=== PATIENT | male | born 1935 | race Caucasian/White ===

== ENCOUNTER 2016-09-21 19:03 | Inpatient (IN) | payer MEDICARE ==
--- NOTE | 2016-09-21 19:49 | ED ---
General Adult HPI - General Chief complaint: Chest Pain Stated complaint: Chest pain Time Seen by Provider: 09/21/16 19:05 Source: patient, RN notes reviewed Mode of arrival: wheelchair Limitations: no limitations - History of Present Illness Initial comments: Is a 81-year-old male who presents emergency Department with a past medical history significant for lung cancer. Patient states 2007 he had a lobectomy on the left side and one year ago he had CyberKnife on lesions on the right. Patient comes in today because he been having intermittent chest pain for 6 months and normally goes away in a few hours but today it's been ongoing since 2 :00 in the afternoon and he continues per patient states he is also much more short of breath and he normally is. Patient denies any fever chills or cough per patient denies any palpitations. Patient denies any headache patient denies lightheadedness dizziness or near syncopal episode. Patient denies any abdominal pain patient denies nausea vomiting or diarrhea. Patient denies any recent injury or trauma. - Related Data Home Medications Medication Instructions Recorded Confirmed Atenolol [Tenormin] 50 mg PO HS 09/21/16 09/21/16 Levothyroxine Sodium [Synthroid] 25 mcg PO DAILY 09/21/16 09/21/16 Naproxen Sodium [Aleve] 220 mg PO BID PRN 09/21/16 09/21/16 Omeprazole 20 mg PO DAILY 09/21/16 09/21/16 Pravastatin Sodium [Pravachol] 40 mg PO HS 09/21/16 09/21/16 Terazosin HCl [Hytrin] 10 mg PO HS 09/21/16 09/21/16 Ubidecarenone [Co Q-10] 100 mg PO HS 09/21/16 09/21/16 Allergies Allergy/AdvReac Type Severity Reaction Status Date / Time hydromorphone [From Dilaudid] AdvReac Hallucinati Verified 09/21/16 19:24 ons Review of Systems ROS Statement: Those systems with pertinent positive or pertinent negative responses have been documented in the HPI. ROS Other: All systems not noted in ROS Statement are negative. Past Medical History Past Medical History: Cancer, CVA/TIA, Hyperlipidemia, Hypertension Additional Past Medical History / Comment(s): lung History of Any Multi-Drug Resistant Organisms: None Reported Past Surgical History: Cholecystectomy Additional Past Surgical History / Comment(s): lung removal, carotid endarectomy Past Psychological History: No Psychological Hx Reported Smoking Status: Former smoker Past Alcohol Use History: None Reported Past Drug Use History: None Reported General Exam - General Exam Comments Initial Comments: GENERAL: Patient is well-developed and well-nourished. Patient is nontoxic and well- hydrated and is in mild distress. ENT: Neck is soft and supple. No significant lymphadenopathy is noted. Oropharynx is clear. Moist mucous membranes. Neck has full range of motion without eliciting any pain. EYES: The sclera were anicteric and conjunctiva were pink and moist. Extraocular movements were intact and pupils were equal round and reactive to light. Eyelids were unremarkable. PULMONARY: Diminished breath sounds on the left CARDIOVASCULAR: There is a regular rate and rhythm without any murmurs gallops or rubs. ABDOMEN: Soft and nontender with normal bowel sounds. No palpable organomegaly was noted. There is no palpable pulsatile mass. SKIN: Skin is clear with no lesions or rashes and otherwise unremarkable. NEUROLOGIC: Patient is alert and oriented x3. Cranial nerves II through XII are grossly intact. Motor and sensory are also intact. Normal speech, volume and content. Symmetrical smile. MUSCULOSKELETAL: Normal extremities with adequate strength and full range of motion. No lower extremity swelling or edema. No calf tenderness. LYMPHATICS: No significant lymphadenopathy is noted PSYCHIATRIC: Normal psychiatric evaluation. Limitations: no limitations Course Vital Signs 09/21/16 09/21/16 09/21/16 19:04 19:49 20:49 Temperature 98.2 F Pulse Rate 99 86 84 Respiratory 20 26 H 24 Rate Blood Pressure 161/67 142/58 138/70 O2 Sat by Pulse 88 L 95 93 L Oximetry Medical Decision Making - Medical Decision Making EKG shows a normal sinus rhythm at 93 bpm RI interval is 162 QRS is 94 QT interval 354 QTC is 440. Patient's EKG is compared to an old EKG no abnormalities are noted Chest x-ray shows a groundglass appearance throughout. Chest CT shows a PE on the right. - Lab Data Result diagrams: 09/21/16 19:31 09/21/16 19:31 Lab Results 09/21/16 09/21/16 09/21/16 Range/Units 19:30 19:31 19:31 WBC 5.9 (3.8-10.6) k/uL RBC 3.37 L (4.30-5.90) m/uL Hgb 9.7 L (13.0-17.5) gm/dL Hct 31.2 L (39.0-53.0) % MCV 92.5 (80.0-100.0) fL MCH 28.9 (25.0-35.0) pg MCHC 31.3 (31.0-37.0) g/dL RDW 13.9 (11.5-15.5) % Plt Count 169 (150-450) k/uL Neutrophils % 81 % Lymphocytes % 7 % Monocytes % 7 % Eosinophils % 2 % Basophils % 0 % Neutrophils # 4.8 (1.3-7.7) k/uL Lymphocytes # 0.4 L (1.0-4.8) k/uL Monocytes # 0.4 (0-1.0) k/uL Eosinophils # 0.1 (0-0.7) k/uL Basophils # 0.0 (0-0.2) k/uL Hypochromasia Moderate Poikilocytosis Slight PT (9.0-12.0) sec INR (<1.1) APTT (22.0-30.0) sec D-Dimer 8.71 H (<0.60) mg/L FEU Sodium (137-145) mmol/L Potassium (3.5-5.1) mmol/L Chloride (98-107) mmol/L Carbon Dioxide (22-30) mmol/L Anion Gap mmol/L BUN (9-20) mg/dL Creatinine (0.66-1.25) mg/dL Est GFR (MDRD) Af Amer (>60 ml/min/1.73 sqM) Est GFR (MDRD) Non-Af (>60 ml/min/1.73 sqM) Glucose (74-99) mg/dL Calcium (8.4-10.2) mg/dL Total Bilirubin (0.2-1.3) mg/dL AST (17-59) U/L ALT (21-72) U/L Alkaline Phosphatase (38-126) U/L Total Creatine Kinase 75 (55-170) U/L CK-MB (CK-2) 0.9 (0.0-2.4) ng/mL CK-MB (CK-2) Rel Index 1.2 Troponin I <0.012 (0.000-0.034) ng/mL NT-Pro-B Natriuret Pep pg/mL Total Protein (6.3-8.2) g/dL Albumin (3.5-5.0) g/dL 09/21/16 09/21/16 09/21/16 Range/Units 19:31 19:31 19:31 WBC (3.8-10.6) k/uL RBC (4.30-5.90) m/uL Hgb (13.0-17.5) gm/dL Hct (39.0-53.0) % MCV (80.0-100.0) fL MCH (25.0-35.0) pg MCHC (31.0-37.0) g/dL RDW (11.5-15.5) % Plt Count (150-450) k/uL Neutrophils % % Lymphocytes % % Monocytes % % Eosinophils % % Basophils % % Neutrophils # (1.3-7.7) k/uL Lymphocytes # (1.0-4.8) k/uL Monocytes # (0-1.0) k/uL Eosinophils # (0-0.7) k/uL Basophils # (0-0.2) k/uL Hypochromasia Poikilocytosis PT 11.3 (9.0-12.0) sec INR 1.1 (<1.1) APTT 22.1 (22.0-30.0) sec D-Dimer (<0.60) mg/L FEU Sodium 145 (137-145) mmol/L Potassium 4.1 (3.5-5.1) mmol/L Chloride 107 (98-107) mmol/L Carbon Dioxide 29 (22-30) mmol/L Anion Gap 9 mmol/L BUN 16 (9-20) mg/dL Creatinine 0.95 (0.66-1.25) mg/dL Est GFR (MDRD) Af Amer >60 (>60 ml/min/1.73 sqM) Est GFR (MDRD) Non-Af >60 (>60 ml/min/1.73 sqM) Glucose 136 H (74-99) mg/dL Calcium 9.1 (8.4-10.2) mg/dL Total Bilirubin 0.9 (0.2-1.3) mg/dL AST 29 (17-59) U/L ALT 57 (21-72) U/L Alkaline Phosphatase 64 (38-126) U/L Total Creatine Kinase (55-170) U/L CK-MB (CK-2) (0.0-2.4) ng/mL CK-MB (CK-2) Rel Index Troponin I (0.000-0.034) ng/mL NT-Pro-B Natriuret Pep 134 pg/mL Total Protein 6.9 (6.3-8.2) g/dL Albumin 3.8 (3.5-5.0) g/dL Critical Care Time Critical Care Time: Yes Total Critical Care Time: 35 Disposition Clinical Impression: Dyspnea, Chest pain, Pulmonary embolism Disposition: ADMITTED IP TO THIS HOSP Referrals: Montrell Rodgers MD [Primary Care Provider] - 1-2 days Time of Disposition: 22:16
[2016-09-21 19:58] LABS: Basophils % (A) 0 %; CH 29.9; CHCM 32.4; Eosinophils # (A) 0.1 k/uL (0-0.7); Eosinophils % (A) 2 %; HCT 31.2 % (39.0-53.0); HDW 3.83; HGB 9.7 gm/dL (13.0-17.5); Hypochromasia Moderate; Luc # (Auto) 0.09; Luc % (Auto) 2; Lymphocytes # (A) 0.4 k/uL (1.0-4.8); Lymphocytes % (A) 7 %; MCH 28.9 pg (25.0-35.0); MCHC 31.3 g/dL (31.0-37.0); MCV 92.5 fL (80.0-100.0); Mean Platelet Volume 7.9; Monocytes # (A) 0.4 k/uL (0-1.0); Monocytes % (A) 7 %; Neutrophils # (A) 4.8 k/uL (1.3-7.7); Neutrophils % (A) 81 %; Poikilocytosis Slight; RBC 3.37 m/uL (4.30-5.90); RDW 13.9 % (11.5-15.5); WBC 5.9 k/uL (3.8-10.6); WBC (Perox) 5.97
[2016-09-21 20:06] LABS: INR 1.1 (<1.1); Partial Thromboplastin Time 22.1 sec (22.0-30.0); Prothrombin Time 11.3 sec (9.0-12.0)
[2016-09-21 20:09] LABS: ALT 57 U/L (21-72); AST 29 U/L (17-59); Alkaline Phosphatase 64 U/L (38-126); Anion Gap 9 mmol/L; Blood Urea Nitrogen 16 mg/dL (9-20); Calcium 9.1 mg/dL (8.4-10.2); Carbon Dioxide 29 mmol/L (22-30); Chloride 107 mmol/L (98-107); Glucose 136 mg/dL (74-99); Non-African American GFR(MDRD) >60 (>60 ml/min/1.73 sqM); Potassium 4.1 mmol/L (3.5-5.1); Sodium 145 mmol/L (137-145); Total Bilirubin 0.9 mg/dL (0.2-1.3); Total Protein 6.9 g/dL (6.3-8.2)
[2016-09-21 20:19] LABS: Creatine Kinase 75 U/L (55-170)
--- NOTE | 2016-09-21 20:21 | XR ---
EXAMINATION TYPE: XR chest 2V DATE OF EXAM: 09/21/2016 8:09 PM COMPARISON: Chest x-ray June 16, 2015. CT chest July 24, 2016. HISTORY: Difficulty in breathing. Intermittent chest pain for 6 months. History of left lung surgery for cancer. TECHNIQUE: Frontal and lateral views of the chest are obtained. FINDINGS: Chronic emphysematous change is redemonstrated. Patchy reticulonodular and diffuse opaciti es throughout both lungs are redemonstrated and more prominent. Left-sided volume loss is again seen . The cardiac silhouette size is stable and upper limits of normal atherosclerotic thoracic aorta. N o pleural effusion or pneumothorax is present. Surgical clips posterior right lower lung are redemons trated. The osseous structures are intact. IMPRESSION: Worsening diffuse bilateral groundglass and reticulonodular opacities consider edema and /or infiltrates. Consider atypical infectious processes.
[2016-09-21 20:32] LABS: Creatine Kinase MB 0.9 ng/mL (0.0-2.4); Troponin I <0.012 ng/mL (0.000-0.034)
[2016-09-21] MEDS ORDERED: RX INFO: IV CONTRAST WAS GIVEN 1 EACH MISC MISCELLANE PRN (20:47)
[2016-09-21] MEDS ORDERED: HEPARIN SODIUM,PORCINE 5,000 UNIT/ML 1 ML VIAL IV ONE (22:09)
--- NOTE | 2016-09-21 22:10 | CT ---
EXAMINATION TYPE: CT chest angio for PE DATE OF EXAM: 09/21/2016 9:52 PM COMPARISON: CT chest July 24, 2016 HISTORY: Patient complains of increasing shortness of breath and hemoptysis. CT DLP: 1196 mGycm Automated exposure control for dose reduction was used. CONTRAST: CT Chest for pulmonary embolism performed with with IV Contrast, patient injected with 100 mL of Omni paque 350. FINDINGS: LUNGS: There is redemonstration of random nodules throughout the lungs bilaterally. There is redemons tration of diffuse groundglass opacity throughout the bilateral lungs most prominent in the posterior left lower lobe in the right middle lobe. In the right middle lobe there is some ill-defined consoli dation also present. Some central consolidation in the right lower lobe with air bronchogram is prese nt. There is small right pleural effusion. No pneumothorax is seen bilaterally. MEDIASTINUM: There is satisfactory enhancement of the pulmonary artery and its branches, there is mariaelena ling defect at the branching point of right middle and lower lobe arterial system seen best on axial image 71. No definitive left-sided pulmonary embolism is seen. There is suspicious right greater than left hilar consolidation and/or adenopathy. There are prominent subcarinal as well as paratracheal, pericarinal, AP window lymph nodes. No cardiomegaly or pericardial effusion is seen. Coronary artery calcification is noted. OTHER: Nodular thickening to left adrenal gland is present. Osseous structures are demineralized. IMPRESSION: 1.. Partial occlusive age indeterminate thrombus or pulmonary embolism lobar branches right middle an d lower lobes. 2. Worsening bilateral pulmonary nodularity and groundglass opacities throughout both lungs suggests worsening infectious process, edema, hypersensitive pneumonitis, and/or possibly metastatic disease. Critical results communicated to ordering emergency room physician via telephone at time of dictation .
[2016-09-21] MEDS ORDERED: methylPREDNISolone SOD SUCCI 125 MG/2 ML VIAL IV STA (22:13)
[2016-09-21] MEDS ORDERED: LEVOFLOXACIN 750MG-D5W PMX 750 MG in DEXTROSE/WATER 1 150ML.BAG IVPB STA (22:38)
[2016-09-21] MEDS: HEPARIN SODIUM,PORCINE/D5W PMX 25,000 UNIT in DEXTROSE/WATER 1 500ML.BAG IV SCH (23:07)
[2016-09-21] MEDS ORDERED: SODIUM CHLORIDE 0.9% 1,000 ML IV STA (23:10)
[2016-09-22] MEDS ORDERED: TEMAZEPAM 15 MG CAP PO PRN (00:21)
[2016-09-22] MEDS ORDERED: ALPRAZolam 0.25 MG TAB PO PRN (00:21)
[2016-09-22] MEDS ORDERED: ACETAMINOPHEN TAB 500 MG TAB PO PRN (00:22)
[2016-09-22 00:38] VITALS: BMI 30.4
[2016-09-22] MEDS: ATENOLOL 50 MG TAB PO SCH ×2 (01:30→21:48)
[2016-09-22 04:41] LABS: Appearance,Urine Clear (Clear); Bilirubin,Urine Negative (Negative); Glucose,Urine (UA) Negative (Negative); Ketones,Urine Negative (Negative); Leukocyte Esterase,Urine Negative (Negative); Mucus,Urine Rare /hpf; Nitrite,Urine Negative (Negative); PH, Urine 5.5 (5.0-8.0); Particle Count 662; Protein,Urine Negative (Negative); RBC,Urine 3 /hpf (0-5); UA Billing (MACRO vs. MICRO) MICRO; Urobilinogen,Urine <2.0 mg/dL (<2.0); WBC,Urine <1 /hpf (0-5)
[2016-09-22 05:29] LABS: Glucose,Whole Blood 183 mg/dL (75-99)
[2016-09-22] MEDS: methylPREDNISolone SOD SUCCI 125 MG/2 ML VIAL IV SCH ×4 (06:16→23:40)
[2016-09-22] MEDS: INSULIN LISPRO (humaLOG) 300 UNIT/3 ML VIAL SQ SCH ×4 (06:16→21:49)
[2016-09-22] MEDS: PANTOPRAZOLE 40 MG TABLET PO SCH (06:17)
[2016-09-22] MEDS: LEVOTHYROXINE 25 MCG TAB PO SCH (08:04)
[2016-09-22] MEDS ORDERED: PANTOPRAZOLE 40 MG TABLET PO SCH (09:00)
--- NOTE | 2016-09-22 10:50 | US ---
EXAMINATION TYPE: US venous doppler duplex LE DATE OF EXAM: 09/22/2016 9:37 AM COMPARISON: NONE CLINICAL HISTORY: Pulmonary embolism per patient; lung CA per patient; radiation TX for lung CA; asse ss for DVT SIDE PERFORMED: bilateral VESSELS IMAGED: Common Femoral Vein Deep Femoral Vein Greater Saphenous Vein * Femoral Vein Popliteal Vein Small Saphenous Vein * Proximal Calf Veins (* superficial vessels) TECHNOLOGIST IMPRESSION: Right Leg: short segment of nonoccluding eccentric wall thickening is noted at upper superficial Fem oral Vein and upper Femoral Vein Valves which suggests chronic thrombus, color flow is present throug hout assessment. Left Leg: nonoccluding intimal vein wall changes are noted at lower CFV and at upper superficial Fem oral Vein Valves, however, color flow is present throughout assessment . Complete compression is identified. IMPRESSION: Areas of chronic DVT noted bilaterally. No convincing evidence of acute DVT in either lo wer extremity.
[2016-09-22 11:18] LABS: Hemoglobin A1C 4.9 % (4.2-6.1)
--- NOTE | 2016-09-22 11:57 | P.CRDCN ---
History of Present Illness Consult date: 09/22/16 Chief complaint: Chest pain/shortness of breath History of present illness: This is a pleasant 81-year-old gentleman who sees Dr. Rodriguez as an outpatient with a past medical history significant for history of lung cancer, COPD, hypertension, and dyslipidemia, presented to the emergency room complaining of chest discomfort and shortness of breath. The patient underwent left lung surgery and right lung CyberKnife and he has been told that the cancer has cured. The patient has been experiencing intermittent episodes of chest discomfort over the last several weeks. The discomfort was of mild intensity and brief episodes yesterday when he had a very intense and prolonged episode of chest discomfort. He came into the emergency room. The d-dimer came in to be alleviated. Subsequently the patient underwent a CTA of the chest which showed partially occlusive pulmonary impulse him of the right middle and lower lobes. Subsequently the patient underwent a venous duplex study which showed evidence of chronic DVT but no acute DVT. Immediately, the patient was started on heparin IV. After the patient was started on heparin IV he is asymptomatic. We get involved in his care for CHF. Clinically the patient doesn't look and CHF. The BNP came in to be within normal limits. I would get an echocardiogram to assess the pericardium and rule out any pericardial effusion as a metastasis from the cancer. Past Medical History Past Medical History: Cancer, CVA/TIA, Hyperlipidemia, Hypertension Additional Past Medical History / Comment(s): lung History of Any Multi-Drug Resistant Organisms: None Reported Past Surgical History: Cholecystectomy Additional Past Surgical History / Comment(s): lung removal, carotid endarectomy Past Psychological History: No Psychological Hx Reported Smoking Status: Former smoker Past Alcohol Use History: None Reported Past Drug Use History: None Reported Medications and Allergies Home Medications Medication Instructions Recorded Confirmed Type Atenolol [Tenormin] 50 mg PO HS 09/21/16 09/21/16 History Levothyroxine Sodium [Synthroid] 25 mcg PO DAILY 09/21/16 09/21/16 History Naproxen Sodium [Aleve] 220 mg PO BID PRN 09/21/16 09/21/16 History Omeprazole 20 mg PO DAILY 09/21/16 09/21/16 History Pravastatin Sodium [Pravachol] 40 mg PO HS 09/21/16 09/21/16 History Terazosin HCl [Hytrin] 10 mg PO HS 09/21/16 09/21/16 History Ubidecarenone [Co Q-10] 100 mg PO HS 09/21/16 09/21/16 History Allergies Allergy/AdvReac Type Severity Reaction Status Date / Time hydromorphone [From Dilaudid] AdvReac Hallucinati Verified 09/21/16 19:24 ons Physical Exam Vitals: Vital Signs Temp Pulse Pulse Resp BP BP Pulse Ox 09/22/16 08:00 97.8 F 95 18 165/83 95 09/22/16 04:00 97.1 F L 88 20 158/76 95 09/22/16 00:00 97.0 F L 94 20 160/75 96 09/21/16 23:11 97.6 F 93 24 133/66 94 L 09/21/16 22:51 97.0 F L 100 20 174/78 92 L Intake and Output 09/21/16 09/22/16 09/22/16 22:59 06:59 14:59 Intake Total 540 158.306 180 Output Total 240 400 Balance 300 -241.694 180 Intake: IV 60 Sodium Chloride 0.9% 1, 60 000 ml @ 20 mls/hr IV . Q24H [facility] Rx#:[id number] Intake, IV Titration 158.306 Amount Heparin Sodium,Porcine/ 158.306 D5w Pmx 25,000 unit In Dextrose/Water 1 500ml. bag @ 18 UNITS/KG/HR 34. 29 mls/hr IV .[id number] [facility] Rx#:[id number] Oral 480 180 Output: Urine 240 400 Other: Voiding Method Urinal # Voids 1 Weight 96.1 kg 96.1 kg - Constitutional General appearance: no acute distress - Respiratory Respiratory: right: CTA, left: diminished - Cardiovascular Rhythm: regular Heart sounds: normal: S1, S2 Results 09/21/16 19:31 09/21/16 19:31 Cardiac Enzymes 09/22/16 Range/Units 03:06 Troponin I 0.031 (0.000-0.034) ng/mL Coagulation 09/22/16 09/22/16 Range/Units 03:06 09:59 APTT 92.7 H 72.2 H (22.0-30.0) sec Current Medications Generic Name Dose Route Start Last Admin Trade Name Freq PRN Reason Stop Dose Admin Acetaminophen 500 mg 09/22/16 00:22 Tylenol Tab PO Q6HR PRN Fever and/ or Pain Alprazolam 0.25 mg 09/22/16 00:21 Xanax PO TID PRN Anxiety Atenolol 50 mg 09/22/16 00:30 09/22/16 01:30 Tenormin PO 50 mg HS MEGHAN Administration Heparin Sodium/Dextrose 25,000 500 mls @ 34.29 mls/hr 09/21/16 22:15 03:44 unit/ IV Solution IV 16 units/kg/hr .[id number] MEGHAN 30.48 mls/hr Protocol Titration 18 UNITS/KG/HR Levofloxacin 750 mg/ IV 150 mls @ 100 mls/hr 09/22/16 23:00 Solution IVPB Q24H MEGHAN Sodium Chloride 1,000 mls @ 20 mls/hr 09/21/16 23:10 09/21/16 23:10 Saline 0.9% IV 09/22/16 23:09 20 mls/hr .Q24H STA Administration Insulin Human Lispro 0 unit 09/22/16 07:30 09/22/16 06:16 Humalog SQ 2 unit ACHS MEGHAN Administration Protocol Levothyroxine Sodium 25 mcg 09/22/16 09:00 09/22/16 08:04 Synthroid PO 25 mcg DAILY MEGHAN Administration Methylprednisolone Sodium Succinate 60 mg 09/22/16 06:00 09/22/16 06:16 Solu-Medrol IV 60 mg Q6HR MEGHAN Administration Miscellaneous Information 1 each 09/21/16 20:47 Rx Info: Iv Contrast Was Given MISCELLANE 09/23/16 20:47 DAILY PRN Per Protocol Pantoprazole Sodium 40 mg 09/22/16 07:30 09/22/16 06:17 Protonix PO 40 mg [id number] MEGHAN Administration Pravastatin Sodium 40 mg 09/22/16 21:00 Pravachol PO HS MEGHAN Temazepam 15 mg 09/22/16 00:21 Restoril PO HS PRN Insomnia Terazosin HCl 10 mg 09/22/16 21:00 Hytrin PO HS MEGHAN Tramadol HCl 50 mg 09/22/16 00:22 Ultram PO TID PRN Pain Intake and Output 09/21/16 09/22/16 09/22/16 22:59 06:59 14:59 Intake Total 540 158.306 180 Output Total 240 400 Balance 300 -241.694 180 Intake: IV 60 Sodium Chloride 0.9% 1, 60 000 ml @ 20 mls/hr IV . Q24H [facility] Rx#:[id number] Intake, IV Titration 158.306 Amount Heparin Sodium,Porcine/ 158.306 D5w Pmx 25,000 unit In Dextrose/Water 1 500ml. bag @ 18 UNITS/KG/HR 34. 29 mls/hr IV .[id number] [facility] Rx#:[id number] Oral 480 180 Output: Urine 240 400 Other: Voiding Method Urinal # Voids 1 Weight 96.1 kg 96.1 kg Assessment and Plan Plan: Assessment #1 atypical chest discomfort which has improved #2 shortness of breath which has improved #3 pulmonary embolism likely to be subacute #4 chronic DVT #5 history of lung cancer #6 multiple comorbid conditions Plan #1 the patient was started on heparin IV for the PE #2 I will obtain an echocardiogram with Doppler to assess the pericardium #3 we'll continue following up with him
[2016-09-22 12:31] LABS: Glucose,Whole Blood 125 mg/dL (75-99)
[2016-09-22] MEDS ORDERED: guaiFENesin-Coden 100-10MG/5ML 10 ML CUP PO PRN (12:40)
--- NOTE | 2016-09-22 12:41 | P.CNPUL ---
History of Present Illness Consult date: 09/22/16 Reason for consult: chest pain, other (Hemoptysis) Chief complaint: Chest pain History of present illness: This is a 81-year-old male who is well-known to me as I follow with him in the office. The patient has a history of right-sided lung cancer status post CyberKnife radiation. The patient has been having intermittent hemoptysis. He underwent bronchoscopy which did not show any active bleeding cultures and cytology were negative. The patient follows with Dr. Rodriguez out of [facility] in [place] for CyberKnife radiation. The patient has had multiple CT scans which shows progression of some left sided pulmonary nodules, concerning for lymphangitic spread of malignancy. The patient has refused biopsies in the past. He presented to the emergency department with chest pain which was not resolving. He also had shortness of breath. He was found to have a pulmonary embolism. Review of Systems All systems: negative Past Medical History Past Medical History: Cancer, CVA/TIA, Hyperlipidemia, Hypertension Additional Past Medical History / Comment(s): lung History of Any Multi-Drug Resistant Organisms: None Reported Past Surgical History: Cholecystectomy Additional Past Surgical History / Comment(s): lung removal, carotid endarectomy Past Psychological History: No Psychological Hx Reported Smoking Status: Former smoker Past Alcohol Use History: None Reported Past Drug Use History: None Reported Medications and Allergies Home Medications Medication Instructions Recorded Confirmed Type Atenolol [Tenormin] 50 mg PO HS 09/21/16 09/21/16 History Levothyroxine Sodium [Synthroid] 25 mcg PO DAILY 09/21/16 09/21/16 History Naproxen Sodium [Aleve] 220 mg PO BID PRN 09/21/16 09/21/16 History Omeprazole 20 mg PO DAILY 09/21/16 09/21/16 History Pravastatin Sodium [Pravachol] 40 mg PO HS 09/21/16 09/21/16 History Terazosin HCl [Hytrin] 10 mg PO HS 09/21/16 09/21/16 History Ubidecarenone [Co Q-10] 100 mg PO HS 09/21/16 09/21/16 History Allergies Allergy/AdvReac Type Severity Reaction Status Date / Time hydromorphone [From Dilaudid] AdvReac Hallucinati Verified 09/21/16 19:24 ons Physical Exam Osteopathic Statement: *. No significant issues noted on an osteopathic structural exam other than those noted in the History and Physical/Consult. Vitals: Vital Signs Temp Pulse Pulse Resp BP BP Pulse Ox 09/22/16 12:00 97.7 F 97 20 145/84 89 L 09/22/16 08:00 97.8 F 95 18 165/83 95 09/22/16 04:00 97.1 F L 88 20 158/76 95 09/22/16 00:00 97.0 F L 94 20 160/75 96 09/21/16 23:11 97.6 F 93 24 133/66 94 L 09/21/16 22:51 97.0 F L 100 20 174/78 92 L Intake and Output 09/21/16 09/22/16 09/22/16 22:59 06:59 14:59 Intake Total 540 158.306 180 Output Total 240 400 Balance 300 -241.694 180 Intake: IV 60 Sodium Chloride 0.9% 1, 60 000 ml @ 20 mls/hr IV . Q24H [facility] Rx#:[id number] Intake, IV Titration 158.306 Amount Heparin Sodium,Porcine/ 158.306 D5w Pmx 25,000 unit In Dextrose/Water 1 500ml. bag @ 18 UNITS/KG/HR 34. 29 mls/hr IV .[id number] [facility] Rx#:[id number] Oral 480 180 Output: Urine 240 400 Other: Voiding Method Urinal # Voids 1 Weight 96.1 kg 96.1 kg Gen.: Patient is alert and oriented 3, no acute distress Cardiovascular: Regular rate and rhythm, S1/S2 Lungs: Scattered crackles Abdomen: Soft nontender nondistended positive bowel sounds Extremities: No edema Results - Laboratory Findings CBC and BMP: 09/21/16 19:31 09/21/16 19:31 PT/INR, D-dimer PT 11.3 sec (9.0-12.0) 09/21/16 19:31 INR 1.1 (<1.1) 09/21/16 19:31 D-Dimer 8.71 mg/L FEU (<0.60) H 09/21/16 19:30 Abnormal lab findings: Abnormal Labs 09/22/16 09/22/16 09/22/16 03:06 04:30 05:27 APTT 92.7 H POC Glucose (mg/dL) 183 H Ur Specific [place] 1.040 H Urine Blood Trace H Urine Mucus Rare H 09/22/16 09:59 APTT 72.2 H POC Glucose (mg/dL) Ur Specific [place] Urine Blood Urine Mucus - Diagnostic Findings Chest x-ray: report reviewed, image reviewed CT scan - chest: report reviewed, image reviewed Assessment and Plan Plan: Acute on chronic hypoxic respiratory failure Acute right lower and middle lobe PE Worsening bilateral pulmonary nodularity and groundglass opacities, concerning for metastatic disease Bilateral lower extremity DVTs Acute chest pain History of lung cancer Anemia Hemoptysis History of tobacco abuse Dyslipidemia Hypertension History of left upper lobectomy O2 to maintain saturation greater than equal to 88% Heparin drip Check echocardiogram per cardiology Antitussives Solu-Medrol Bronchodilators and Pulmicort Antibiotics: Levaquin Patient would ultimately need surgical lung biopsy for nodularity, he has been treated for pneumonia and hypersensitivity pneumonitis in the past months with no response. Nodules are too small to be seen on PET/CT. Patient has refused biopsy in the past. Given new pulmonary embolism and need for anticoagulation, would not recommend biopsy at this time. Pulmonary embolism is also concerning for recurrent cancer. is at bedside and is updated to plan of care. Ultimately patient may benefit from hospice evaluation.
--- NOTE | 2016-09-22 12:47 | HP ---
DATE OF ADMISSION: 09/21/2016 CHIEF COMPLAINT: Chest pain. HISTORY OF PRESENT ILLNESS: This 81-year-old gentleman with a past medical history of multiple medical problems including history of CVA, TIA, history of hyperlipidemia, hypertension, history of lung cancer previously had surgery by [facility] and recently patient had CyberKnife in [place] also. Patient follows with Dr. Rodgers in the outpatient setting. Currently the patient complained of chest pain. The patient had CyberKnife a year ago on the right side. The patient has had intermittent chest pain for 6 months, mostly in the right side and the patient also had some shortness of breath. Patient came to [facility] and was admitted for further evaluation and treatment. Patient had a chest x-ray done in the ER which showed worsening diffuse bilateral ground-glass appearance, possibly indicating congestive heart failure and a chest CT was also done, which showed partial occlusive age-indeterminate thrombus and pulmonary embolism of the lower branch of the right middle and lower lobes and worsening bilateral nodule and ground-glass opacity throughout and worsening infectious process, edema, disorder, metastatic disease also. The patient admitted for further evaluation and treatment. There is no history of any fever, rigors or chills. No history of headache, loss of consciousness or seizures at this time. PAST MEDICAL HISTORY: History of lung cancer and with multiple surgeries and as mentioned earlier, history of cerebrovascular accident, transient ischemic attack, history of hypertension, hyperlipidemia, history of cholecystectomy. MEDICATIONS PRIOR TO ADMISSION: 1. Coenzyme Q 100 mg daily. 2. Hytrin 10 mg q.h.s. 3. Pravachol 40 mg. 4. Omeprazole 20 mg p.o. daily. 5. Aleve 225 mg p.o. b.i.d. p.r.n. 6. Synthroid 25 mcg p.o. daily. 7. Tenormin 50 mg p.o. q.h.s. ALLERGIES ARE DILAUDID. FAMILY HISTORY: No history of heart disease or strokes in the family. SOCIAL HISTORY: Previous history of smoking. No history of current smoking or alcohol intake. REVIEW OF SYSTEMS: ENT: No dimension hearing or vision. CARDIOVASCULAR: As mentioned earlier. RESPIRATORY: As mentioned earlier. GI: No nausea. : No dysuria. NERVOUS SYSTEM: No numbness or weakness. ALLERGY/IMMUNOLOGY: No history of asthma. MUSCULOSKELETAL: As mentioned earlier. HEMATOLOGY/ONCOLOGY: As mentioned earlier. ENDOCRINE: No history of diabetes or hypothyroidism. CONSTITUTIONAL: As mentioned earlier. DERMATOLOGY: Negative. RHEUMATOLOGY: Negative. PSYCHIATRY: As mentioned earlier. PHYSICAL EXAMINATION: Patient is alert and oriented x3. Pulse 93, blood pressure 130/63, respirations 24, temperature 97.4, pulse ox 94% on 3 L and 88% on 3-L on admission. Breathing efforts were labored previously. HEENT: Conjunctivae normal. Oral mucosa moist. NECK: No jugular venous distention. No carotid bruit. No lymph node enlargement. Accessory muscles of respirations are acting. CARDIOVASCULAR: S1 and S2, muffled. No S3, no S4. RESPIRATORY: Breath sounds diminished at the bases. Bilateral scattered rhonchi, expiratory wheezing and crackles. ABDOMEN: Soft, nontender. No mass palpable. LEGS: No edema, no swelling. NERVOUS SYSTEM: Higher function as mentioned. Moves all four limbs. No focal motor deficits. LYMPHATIC: No lymphadenopathy in the neck, axillae or groin. SKIN: No ulcer, rash or bleeding. LABS: WBC 5.8, hemoglobin is 9.7. D-dimer 8.71, glucose 136. ASSESSMENT: 1. Shortness of breath, possible acute pulmonary embolism or multifactorial. 2. Bilateral lesions in the chest x-ray and spiral CAT scan suggestive of interstitial lesions or fluid overload or metastasis. 3. History of lung cancer with lobectomy and as well as CyberKnife on the right recently. 4. Anemia, normocytic, anemia of chronic disease. 5. History of history of cerebrovascular accident and transient ischemic attack. 6. Hypertension. 7. Hyperlipidemia. 8. History of nicotine dependence. 9. Cholecystectomy. 10. History of carotid endarterectomy. 11. FULL CODE. RECOMMENDATIONS AND DISCUSSION: In this 81-year-old gentleman who presented with multiple complex medical issues, we will monitor the patient closely. Continue the current medications. Continue symptomatic treatment. Otherwise, at this time I would recommend pulmonary consultation and also Cardiology consultation. Hematology and Oncology consultation also will be ordered. I will start the patient on IV heparin and continue to monitor. Transition to no anticoagulant agents once appropriate. Prognosis guarded because of multiple complex medical issues. Symptomatic treatment will be provided. Resume the home medications. Discussed with patient who understands. Further recommendations to follow. Copy of dictation forward Dr. Rodgers, who is the primary physician. [facility]
[2016-09-22] MEDS: HEPARIN SODIUM,PORCINE/D5W PMX 25,000 UNIT in DEXTROSE/WATER 1 500ML.BAG IV SCH (13:48)
[2016-09-22] MEDS: IPRATROPIUM-ALBUTEROL 3 ML NEB INHALATION SCH ×2 (16:14→20:17)
[2016-09-22 17:22] LABS: Glucose,Whole Blood 147 mg/dL (75-99)
--- NOTE | 2016-09-22 17:28 | CONS ---
DATE OF CONSULTATION: 09/22/2016 Reason for consultation is lung cancer. CHIEF COMPLAINT: Chest pain and hemoptysis. Mr. Lopes is a very pleasant 81-year-old gentleman who had a history of early stage non-small cell lung carcinoma, initially in 2007, at that time he underwent left lower lobectomy by Dr. Hernandez and he did not require any further therapy afterward. In 2014, he was found to have a new suspicious lesion and he underwent left upper lobectomy. In 2014, he developed right lower lobe new suspicious nodules in the right lower lobe and subsequently was referred to [facility] in [place]. He underwent Cyber-knife radiation therapy to it. The patient presented to the hospital because he has been having worsening cough and chest pain for the last 6 months associated with hemoptysis and chest pain across his chest intermittently. He has been seen by Pulmonology Service by Dr. Hopkins and he recently underwent a bronchoscopy and did not show any evidence of active bleeding and cytology and cultures were negative. Also, the patient, he did undergo a CAT scan of his chest in the past and revealed nonspecific lung nodules and probably the area of previous radiation therapy in the right lower lobe. However, had CAT scans in the past which revealed some lung nodules; however, recent CAT scan revealed probably some progression of the left-sided nodules and did decline biopsies in the past. The patient now presented again to the emergency department was worsening shortness of breath. He did have another repeat CAT scan of his chest which revealed a partially occlusive thrombus of the lobar branch of the right middle lobe and lower lobes and there was worsening bilateral pulmonary nodularity and ground glass opacity throughout both lung suggestive of possible pneumonitis or infectious process, but certainly metastatic disease was in the differential. The patient ended up being admitted to the hospital, also has a venous Doppler of his lower extremities done, which revealed chronic DVT bilaterally. The patient ended up being admitted to the hospital, he was started on intravenous heparin along with IV antibiotics and IV Solu-Medrol and he has been seen by Pulmonary Service. The patient denies any fever or chills. As stated, he has shortness of breath, even with slight exertion. He has chronic cough, which is leading to chest pain across his chest bilaterally and he has had intermittent hemoptysis. There is no dysphagia. There is no weight loss. No headaches. No nausea or vomiting. No melena, hematochezia or hematuria. His past medical history in addition to what is stated above in regard to his lung cancer, he had a history of stroke, hyperlipidemia, hypertension, COPD, he a left lower lobectomy in 2007, he had a cholecystectomy in the past, he had carotid endarterectomy. SOCIAL HISTORY: He is a former smoker. No alcohol abuse or substance abuse. ALLERGIES: He is allergic to DILAUDID. His current medications reviewed in his electronic medical records. Family history is not significant for underlying malignancy. On physical examination he is alert and oriented x3. He does not appear to be in distress at this time. His vital signs are temperature 97.7, afebrile, pulse is 97 and regular, respirations 20, blood pressure 145/84. Pulse ox 89% on 4 L nasal cannula. HEENT: Normocephalic, atraumatic. No obvious scleral icterus. Neck is supple. No jugular venous distention. CHEST: Equal expansion bilaterally. Lungs reveal prolonged expectoration and scattered crackles and rhonchi in both tracey. Heart is regular rate and rhythm. Abdomen is soft. No tenderness or organomegaly. Extremities reveal no significant edema. SKIN: No significant bruises, ecchymosis or petechia. LYMPHATICS: No peripherally enlarged cervical or supraclavicular lymphadenopathy. MUSCULOSKELETAL: Moving all extremities appropriately. No percussion tenderness detected over his spine or his sternum. LABORATORY DATA: WBC of 5.9, hemoglobin 9.7, hematocrit is 31.2, platelets are 169. Sodium 145, potassium 4.1, chloride 107, CO2 is 29. BUN 16, creatinine 0.9, calcium, LFT and alkaline phosphatase are within normal limits. IMPRESSION: 1. Non-small cell lung carcinoma with diagnostic and therapeutic circumstances as stated above. He initially had left upper lobectomy in 2007 and subsequently he had Cyber-knife therapy to right lower lobe nodules in 2015. Now he has some increased nodular density and ground glass opacity bilaterally and also pulmonary emboli and he is hypoxemic. This is probably likely related to possible acute exacerbation of chronic obstructive pulmonary disease and inflammatory changes; however, recurrent non-small cell lung carcinoma cannot be excluded, and recurrent metastatic non-small cell lung carcinoma cannot be excluded, but felt to be a less likely possibility at this point in time. 2. Pulmonary emboli as stated above. 3. Other comorbidities. RECOMMENDATION: 1. The patient already started on intravenous heparin, certainly he will require long-term anticoagulation with oral anticoagulant, either warfarin or NOAC (new oral anticoagulant). 2. Continue current treatment with steroids and antibiotics. 3. The patient previously declined biopsies; however, at this time it is reasonable to treat him with steroid and antibiotics and repeat CAT scans to see if there is any improvement in the nodularity in his lungs and based on that, further decision will be made. 4. The above was discussed with the patient and his at bedside and I have answered all their questions to their satisfaction. Thank you very much for asking me to participate in the care of this nice gentleman.
[2016-09-22] MEDS: BUDESONIDE 0.5 MG/2 ML NEBU INHALATION SCH (20:17)
[2016-09-22] MEDS: traMADol 50 MG TAB PO PRN ×2 (20:34→23:24)
[2016-09-22] MEDS ORDERED: TERAZOSIN 5 MG CAP PO SCH (21:00)
[2016-09-22] MEDS ORDERED: PRAVASTATIN SODIUM 40 MG TAB PO SCH (21:00)
[2016-09-22 21:24] LABS: Glucose,Whole Blood 154 mg/dL (75-99)
[2016-09-22] MEDS ORDERED: LEVOFLOXACIN 750MG-D5W PMX 750 MG in DEXTROSE/WATER 1 150ML.BAG IVPB SCH (23:00)
[2016-09-23] MEDS: HEPARIN SODIUM,PORCINE/D5W PMX 25,000 UNIT in DEXTROSE/WATER 1 500ML.BAG IV SCH (04:48)
[2016-09-23] MEDS: methylPREDNISolone SOD SUCCI 125 MG/2 ML VIAL IV SCH ×2 (05:28→13:41)
[2016-09-23 07:04] LABS: Glucose,Whole Blood 151 mg/dL (75-99)
[2016-09-23 07:57] VITALS: RESP 20; TEMP 97.2
[2016-09-23] MEDS: IPRATROPIUM-ALBUTEROL 3 ML NEB INHALATION SCH ×2 (08:09→11:39)
[2016-09-23] MEDS: BUDESONIDE 0.5 MG/2 ML NEBU INHALATION SCH (08:10)
[2016-09-23] MEDS: INSULIN LISPRO (humaLOG) 300 UNIT/3 ML VIAL SQ SCH ×2 (08:39→13:41)
[2016-09-23] MEDS: PANTOPRAZOLE 40 MG TABLET PO SCH (08:39)
[2016-09-23] MEDS: LEVOTHYROXINE 25 MCG TAB PO SCH (08:39)
[2016-09-23 09:07] LABS: Basophils % (A) 0 %; CH 28.9; CHCM 31.1; Eosinophils % (A) 0 %; HCT 29.6 % (39.0-53.0); HDW 3.93; HGB 9.2 gm/dL (13.0-17.5); Hypochromasia Marked; Luc # (Auto) 0.36; Luc % (Auto) 2; Lymphocytes # (A) 1.1 k/uL (1.0-4.8); Lymphocytes % (A) 7 %; MCH 29.1 pg (25.0-35.0); MCHC 31.2 g/dL (31.0-37.0); MCV 93.2 fL (80.0-100.0); Mean Platelet Volume 7.4; Monocytes # (A) 1.1 k/uL (0-1.0); Monocytes % (A) 7 %; Neutrophils # (A) 14.1 k/uL (1.3-7.7); Neutrophils % (A) 84 %; Poikilocytosis Slight; RBC 3.18 m/uL (4.30-5.90); WBC 16.7 k/uL (3.8-10.6); WBC (Perox) 17.97
[2016-09-23 10:24] VITALS: BP 109/64
[2016-09-23 10:30] LABS: Anion Gap 13 mmol/L; Blood Urea Nitrogen 28 mg/dL (9-20); Calcium 8.9 mg/dL (8.4-10.2); Carbon Dioxide 25 mmol/L (22-30); Chloride 104 mmol/L (98-107); Glucose 131 mg/dL (74-99); Non-African American GFR(MDRD) >60 (>60 ml/min/1.73 sqM); Potassium 4.1 mmol/L (3.5-5.1); Sodium 142 mmol/L (137-145)
--- NOTE | 2016-09-23 10:42 | XR ---
EXAMINATION TYPE: XR chest 1V portable DATE OF EXAM: 09/23/2016 10:33 AM CLINICAL HISTORY: Difficulty breathing progress study. TECHNIQUE: Single AP portable frontal view of the chest is obtained. COMPARISON: Chest x-ray and CTA chest from 2 days earlier FINDINGS: There is persistent ill-defined nodules and nodularity with increased diffusely and bilate rally with increased opacity in both lower lungs. There is likely stable tiny right pleural effusion. There is no significant left-sided effusion. Cardiac silhouette size is within normal limits. Osseou s structures are intact. IMPRESSION: Overall stable findings, persistent diffuse nodular opacities bilaterally and bilateral lower lung edema and/or infiltrates. Consider atypical infection, lymphangitic spread of neoplasm, a nd other etiologies among the broad differential.
[2016-09-23] MEDS ORDERED: MORPHINE SULFATE 2 MG/ML SYRINGE IVP PRN (10:58)
--- NOTE | 2016-09-23 11:18 | P.PN ---
Subjective Principal diagnosis: PE Patient seen and examined. Called to see patient due to respiratory distress and worsening hypoxemia. Patient is placed on NRB and O2 sats now improved to 98%. Patient c/o shortness of breath and coughing up blood. Patient states last night he had severe chest pain. He became confused over night. He pulled out some IVs. His is at bedside. The heparin drip is stopped due to worsening hemoptysis and worsening CXR. Patient and are agreeable to meet with hospice. Objective - Vital Signs Vital signs: Vital Signs Temp 97.2 F L 09/23/16 07:00 Pulse 75 09/23/16 10:24 Resp 20 09/23/16 07:00 BP 109/64 09/23/16 10:18 Pulse Ox 94 L 09/23/16 10:41 Intake & Output 09/22/16 09/23/16 09/23/16 18:59 06:59 18:59 Intake Total 486.832 457.2 175.768 Output Total 650 Balance -163.168 457.2 175.768 Intake: Intake, IV Titration 306.832 457.2 175.768 Amount Heparin Sodium,Porcine/ 306.832 457.2 175.768 D5w Pmx 25,000 unit In Dextrose/Water 1 500ml. bag @ 18 UNITS/KG/HR 34. 29 mls/hr IV .[id number] [facility] Rx#:[id number] Oral 180 Output: Urine 650 Other: Voiding Method Toilet # Voids 2 - Exam Gen.: Patient is alert and oriented 3, no acute distress Cardiovascular: Regular rate and rhythm, S1/S2 Lungs: Course breath sounds bilaterally Abdomen: Soft nontender nondistended positive bowel sounds Extremities: No edema - Labs CBC & Chem 7: 09/23/16 08:26 09/23/16 08:26 Labs: Abnormal Lab Results - Last 24 Hours (Table) 09/22/16 09/22/16 09/22/16 Range/Units 12:17 17:20 21:02 WBC (3.8-10.6) k/uL RBC (4.30-5.90) m/uL Hgb (13.0-17.5) gm/dL Hct (39.0-53.0) % Neutrophils # (1.3-7.7) k/uL Monocytes # (0-1.0) k/uL APTT (22.0-30.0) sec BUN (9-20) mg/dL Glucose (74-99) mg/dL POC Glucose (mg/dL) 125 H 147 H 154 H (75-99) mg/dL 09/23/16 09/23/16 09/23/16 Range/Units 06:52 08:26 08:26 WBC 16.7 H (3.8-10.6) k/uL RBC 3.18 L (4.30-5.90) m/uL Hgb 9.2 L (13.0-17.5) gm/dL Hct 29.6 L (39.0-53.0) % Neutrophils # 14.1 H (1.3-7.7) k/uL Monocytes # 1.1 H (0-1.0) k/uL APTT (22.0-30.0) sec BUN 28 H (9-20) mg/dL Glucose 131 H (74-99) mg/dL POC Glucose (mg/dL) 151 H (75-99) mg/dL 09/23/16 Range/Units 08:26 WBC (3.8-10.6) k/uL RBC (4.30-5.90) m/uL Hgb (13.0-17.5) gm/dL Hct (39.0-53.0) % Neutrophils # (1.3-7.7) k/uL Monocytes # (0-1.0) k/uL APTT 52.7 H (22.0-30.0) sec BUN (9-20) mg/dL Glucose (74-99) mg/dL POC Glucose (mg/dL) (75-99) mg/dL Assessment and Plan Plan: Acute on chronic hypoxic respiratory failure Acute right lower and middle lobe PE Worsening bilateral pulmonary nodularity and groundglass opacities, concerning for metastatic disease Bilateral lower extremity DVTs Acute chest pain History of lung cancer Anemia Hemoptysis, worsening History of tobacco abuse Dyslipidemia Hypertension History of left upper lobectomy O2 to maintain saturation greater than equal to 88% Heparin drip on hold due to worsening hemoptysis and hypoxemia Antitussives Solu-Medrol Bronchodilators and Pulmicort Antibiotics: Levaquin Patient would ultimately need surgical lung biopsy for nodularity, he has been treated for pneumonia and hypersensitivity pneumonitis in the past months with no response. Nodules are too small to be seen on PET/CT. Patient has refused biopsy in the past. Given new pulmonary embolism and need for anticoagulation, would not recommend biopsy at this time. Pulmonary embolism is also concerning for recurrent cancer. is at bedside and is updated to plan of care. Ultimately patient may benefit from hospice evaluation. Patient has had multiple rounds of ABX and steroids over the past months. Concern is for progression of cancer and now worsening hemoptysis. Patient and are agreeable to meet with hospice. Code status is changed to DNR. Morphine initiated for comfort. Heparin drip discontinued. Discontinue Pulmicort and Solumedrol per patient request. ABG is obtained and reviewed. PaO2 is 67 on 100% NRB.
[2016-09-23 11:53] VITALS: PULSE 86
[2016-09-23 12:19] LABS: Glucose,Whole Blood 120 mg/dL (75-99)
[2016-09-23 12:40] LABS: ABG Base Excess 2.5 mmol/L; ABG HCO3 27 mmol/L (21-25); ABG PCO2 42 mmHg (35-45); ABG PH 7.42 (7.35-7.45); ABG PO2 67 mmHg (83-108); ABG TCO2 28 mmol/L (19-24)
--- NOTE | 2016-09-23 16:08 | PN ---
DATE OF SERVICE: 09/22/2016 This 81-year-old gentleman who was admitted with shortness of breath had acute pulmonary embolism. The patient also had chest pain. The patient also had bilateral lesions suggestive of interstitial lesions and fluid overload or metastasis. The patient is being evaluated by Hematology/Oncology as well as Pulmonary. Patient has started on IV heparin at this time. Patient also had some hemoptysis. Past medical history reviewed. REVIEW OF SYSTEMS: CARDIOVASCULAR: As mentioned earlier. RESPIRATORY SYSTEM: As mentioned earlier. GI: No nausea. : No dysuria. NERVOUS SYSTEM: As mentioned earlier. Current medications are reviewed and include: 1. Tylenol 500 mg q.6 p.r.n. 2. DuoNeb q.i.d. and p.r.n. 3. Xanax 0.25 t.i.d. 4. Tenormin 50 mg at bedtime. 5. Pulmicort 0.5 6. Robitussin AC q.6 p.r.n. 7. IV heparin. 8. Humalog. 9. Levaquin 750 IV q.24. 10. Synthroid 25 mcg p.o. daily. 11. Solu-Medrol 60 IV q.6. 12. Protonix 40 mg with breakfast. 13. Pravachol 40 mg at bedtime. 14. Restoril 15 mg at bedtime. 15. Hytrin 10 mg p.o. at bedtime. 16. Ultram 50 mg p.o. t.i.d. p.r.n. PHYSICAL EXAMINATION: Patient is alert and oriented x3. Pulse 106, blood pressure 149/78, respiration 21, temperature 98.1, pulse ox 90% on room air. HEENT: Conjunctivae normal. NECK: No jugular venous distention. CARDIOVASCULAR SYSTEM: S1, S2 muffled. RESPIRATORY SYSTEM: Breath sounds diminished at the bases. A few scattered rhonchi. Expiratory wheezing and crackles also heard. ABDOMEN: Soft, nontender. No mass palpable. LEGS: No edema. No swelling. NERVOUS SYSTEM: Higher functions as mentioned earlier. Moves all 4 limbs. No focal motor or sensory deficit. LYMPHATICS: No lymph node palpable in neck, axillae or groin. SKIN: No ulcer, rash, bleeding. LABS: UA noted. Otherwise, glucose 125. WBC 5.2, hemoglobin 9.7. ASSESSMENT: 1. Shortness of breath, possible acute pulmonary embolism and multifactorial. 2. Bilateral lesions on chest x-ray; spiral CT scan suggestive of interstitial lesions, possibly pneumonitis or fluid overload or metastasis. 3. History of lung cancer with lobectomy as well as CyberKnife on the right recently. 4. Anemia, normocytic; anemia of chronic disease. 5. History of cerebrovascular accident, transient ischemic attack. 6. Hypertension. 7. Hyperlipidemia. 8. History of nicotine dependence. 9. History of cholecystectomy. 10. History of carotid endarterectomy. 11. FULL CODE. RECOMMENDATIONS AND DISCUSSION: In this 81-year-old gentleman who presented with multiple complex medical issues, we will monitor the patient closely, continue the current medications, continue symptomatic treatment. We will closely follow with Pulmonary and Hematology/Oncology. Cardiology also will be consulted. Continue with empiric antibiotics. I would also recommend continuing with IV heparin and transition to Xarelto if okay with insurance. Otherwise, continue to monitor. Guarded prognosis. Further recommendations to follow. MTDD
[2016-09-23] MEDS ORDERED: LEVOFLOXACIN 750 MG TAB PO SCH (22:00)
--- NOTE | 2016-09-24 10:43 | ECHOF ---
Referral Reason:chf MEASUREMENTS -------- HEIGHT: 152.4 cm WEIGHT: 95.7 kg BP: 126/69 RVIDd: 3.3 cm (< 3.3) IVSd: 1.5 cm (0.6 - 1.1) LVIDd: 4.9 cm (3.9 - 5.3) LVPWd: 1.3 cm (0.6 - 1.1) IVSs: 1.6 cm LVIDs: 3.7 cm LVPWs: 1.5 cm LA Diam: 1.2 cm (2.7 - 3.8) LAESV Index (A-L): 45.31 ml/m MV EXCURSION: 17.787 mm (> 18.000) MV EF SLOPE: 103 mm/s (70 - 150) EPSS: 0.4 cm MV E Carlo: 0.76 m/s MV DecT: 174 ms MV A Carlo: 0.78 m/s MV E/A Ratio: 0.97 AV maxP.75 mmHg AV meanP.48 mmHg RAP: 5.00 mmHg RVSP: 14.25 mmHg FINDINGS -------- Sinus rhythm. This was a technically adequate study. There is mild concentric left ventricular hypertrophy. Overall left ventricular systolic function is normal with, an EF between 55 - 60 %. The right ventricle is normal in size. LA is severely dilated >40 ml/m2 The right atrial size is normal. There is mild aortic regurgitation. Moderate aortic stenosis with peak/mean pressure gradient of 47.75mmHg / 20.48mmHg, the aortic valve area by continuity equation is 1.2cm. Mild mitral annular calcification present. Mild mitral regurgitation is present. Mild tricuspid regurgitation present. There is no evidence of pulmonary hypertension. The right ventricular systolic pressure, as measured by Doppler, is 14.25mmHg. There is no pulmonic regurgitation present. The aortic root size is normal. There is no pericardial effusion. CONCLUSIONS -------- 1. There is mild concentric left ventricular hypertrophy. 2. The right ventricular systolic pressure, as measured by Doppler, is 14.25mmHg. 3. Overall left ventricular systolic function is normal with, an EF between 55 - 60 %. 4. LA is severely dilated >40 ml/m2 5. There is mild aortic regurgitation. 6. Moderate aortic stenosis with peak/mean pressure gradient of 47.75mmHg / 20.48mmHg, the aortic valve area by continuity equation is 1.2cm. 7. Mild mitral annular calcification present. 8. Mild mitral regurgitation is present. 9. Mild tricuspid regurgitation present. 10. There is no evidence of pulmonary hypertension. SENIOR PATIENT ACCOUNT REPRESENTATIVE: Tess Yeung RDCS
--- NOTE | 2016-09-27 10:00 | DS ---
DATE OF ADMISSION: 09/21/2016 DATE OF DISCHARGE: 09/23/2016 FINAL DIAGNOSES: 1. Shortness of breath, possibly multifactorial secondary to pulmonary embolism. 2. Bilateral lesions on chest x-ray; spiral CT scan suggestive of interstitial lesions, possibly pneumonitis or fluid overload or metastasis. 3. History of lung cancer with lobectomy as well as CyberKnife on the right side recently. 4. Anemia, normocytic; anemia of chronic disease. 5. History of cerebrovascular accident, transient ischemic attack. 6. Hypertension. 7. Hyperlipidemia. 8. History of nicotine dependence. 9. History of cholecystectomy. 10. History of carotid endarterectomy. 11. NO CODE, NO CPR, NO VENT, COMFORT MEASURES. HISTORY OF PRESENT ILLNESS: This 81-year-old gentleman with a past medical history of multiple medical problems was admitted with shortness of breath and acute pulmonary embolism. The patient was treated with bronchodilator as well as antibiotic and as well as heparin. Dr. Grewal saw the patient from the pulmonary point of view as well as Dr. Gutierrez from cardiology. The patient was not improving. Discussion was had with Dr. Grewal with the family and the patient was made comfort measures. Please refer to the multiple other documentation for more information. The prognosis remained extremely guarded throughout the hospital stay.
== END 2016-09-23 14:08 | disposition hospice, inpatient (51) | DRG 175 ==
LOC: EC 19:03 → 6SEL 22:17 → 4MS4W 09-22 16:47
PROVIDERS: ADMIT Hospitalist; ATTEND Hospitalist
DX: I26.99 Other pulmonary embolism without acute cor pulmonale (principal); J96.21 Acute and chronic respiratory failure with hypoxia; C78.02 Secondary malignant neoplasm of left lung; C78.01 Secondary malignant neoplasm of right lung; I82.513 Chronic embolism and thrombosis of femoral vein, bilateral; J44.1 Chronic obstructive pulmonary disease with (acute) exacerbation; Z66 Do not resuscitate; D63.8 Anemia in other chronic diseases classified elsewhere; I10 Essential (primary) hypertension; E78.5 Hyperlipidemia, unspecified; Z90.49 Acquired absence of other specified parts of digestive tract; Z90.2 Acquired absence of lung [part of]; Z87.891 Personal history of nicotine dependence; Z85.118 Personal history of other malignant neoplasm of bronchus and lung; Z92.3 Personal history of irradiation; Z86.73 Personal history of transient ischemic attack (TIA), and cerebral infarction without residual deficits; Z79.899 Other long term (current) drug therapy
CPT/HCPCS: 36415; 36600; 71010; 71020; 71275; 80048; 80053; 81001; 82550; 82553; 82805; 83036; 83880; 84484; 85025; 85379; 85610; 85730; 87040; 93005; 93306; 93965; 93970; 94640; 94760; 96374; 96375; 99291

== ENCOUNTER 2016-09-23 14:13 | Inpatient (IN) | payer MEDICAID ==
[2016-09-23] MEDS ORDERED: ARTIFICIAL TEARS-HYPROMELLOSE DROPS 15 ML BTL BOTH EYES PRN (14:21)
[2016-09-23] MEDS ORDERED: BISACODYL 10 MG SUPP RECTAL PRN (14:21)
[2016-09-23] MEDS ORDERED: ACETAMINOPHEN SUPPOSITORY 650 MG SUPP RECTAL PRN (14:21)
[2016-09-23] MEDS ORDERED: SCOPOLAMINE 1.5MG/72HR PATCH TRANSDERM SCH (14:30)
[2016-09-23] MEDS: MORPHINE SULFATE 100 MG in SODIUM CHLORIDE 0.9% 100 ML IV SCH (15:23)
[2016-09-24] MEDS: LORazepam 2 MG/ML SYRINGE IV PRN ×2 (02:31→22:36)
[2016-09-24] MEDS ORDERED: SCOPOLAMINE 1.5MG/72HR PATCH TRANSDERM SCH (15:26)
--- NOTE | 2016-09-24 16:59 | P.PN ---
Subjective Principal diagnosis: Chest pain and pulmonary embolism Patient seen and examined with at bedside. Patient is on heparin drip. He is obtunded and breathing comfortably. No issues or concerns per the . Objective - Vital Signs Vital signs: Vital Signs Temp Pulse Resp 12 09/24/16 07:00 BP Pulse Ox 99 09/24/16 02:33 Intake & Output 09/23/16 09/24/16 09/24/16 18:59 06:59 18:59 Intake Total 300 69.904 Output Total 100 Balance 300 -30.096 Weight 96.1 kg Intake: IV 36 Morphine Sulfate 100 mg 36 In Sodium Chloride 0.9% 100 ml @ 2 MG/HR 2.08 mls /hr IV .Q24H [facility] Rx#: [id number] Intake, IV Titration 33.904 Amount Morphine Sulfate 100 mg 33.904 In Sodium Chloride 0.9% 100 ml @ 2 MG/HR 2.08 mls /hr IV .Q24H [facility] Rx#: [id number] Oral 300 0 Output: Urine 100 Other: Voiding Method Urinal Urinal # Voids 1 1 - Exam Gen.: Patient is obtunded, his breathing is nonlabored Cardiovascular: Regular rate and rhythm, S1/S2 Lungs: Coarse breath sounds bilaterally Abdomen: Soft nontender nondistended positive bowel sounds Extremities: No edema Assessment and Plan Plan: Acute on chronic hypoxic respiratory failure Acute right lower lobe pulmonary embolism Worsening groundglass opacities and pulmonary nodularity concerning for metastatic disease Hemoptysis Bilateral lower extremity DVTs Chest pain History of lung cancer Anemia Continue hospice care Pain control We will continue to follow along
--- NOTE | 2016-09-24 18:10 | P.DS ---
Providers Date of admission: 09/23/16 14:13 Expected date of discharge: 09/23/16 (Comfort care with hospice) Attending physician: Manjit Sharp Consults: Dr. Jasso, Oncology Dr. Hopkins, pulmonary Dr. Gutierrez, Cardiology Primary care physician: Manjit Rodgers Dr. Hospital Course: Final diagnoses: 1. Acute on chronic hypoxic respiratory failure related to acute PE, worsening bilateral pulmonary nodules, groundglass opacity's, suggestive of interstitial lesions, possibly pneumonitis or fluid overload, suspect metastasis. 2. Worsened hemoptysis on heparin drip, subsequently discontinued 3. Bilateral lower extremity DVTs, chronic 4. Acute chest pain 5. History of lung cancer with lobectomy and recent CyberKnife radiation 6. History of nicotine abuse 7. Anemia, normocytic of chronic disease 8. History of CVA, TIA 9. Hypertension 10. Hyperlipidemia 11. Moderate aortic stenosis, normal LV function, EF 55-60%, per echo 12. No code, no CPR, no intubation 13. Comfort care. This is a 81-year-old gentleman admitted with increased shortness of breath, chest pain, hypoxic respiratory failure, acute pulmonary embolism in a patient with history of right-sided lung cancer with lobectomy, CyberKnife radiation recently. Patient failed outpatient treatment for pneumonia and hypersensitivity pneumonitis for months. Previously declined biopsies. Bilateral lesions on chest x-ray, spiral CT suggestive of interstitial lesions, possibly pneumonitis, fluid overload or metastasis. Maintained on heparin drip. Evaluated and treated by pulmonary, cardiology and oncology. Respiratory status worsened, requiring nonrebreather(pO2 67% on 100% nonrebreather), developed severe chest pain with hemoptysis. Heparin drip discontinued related to worsening hemoptysis and worsening chest x-ray. CODE STATUS changed to DO NOT RESUSCITATE, Family met with hospice. Patient made comfort care with hospice per family's request. Patient being discharged and opened to hospice. Patient Condition at Discharge: Poor Plan - Discharge Summary Activity/Diet/Wound Care/Special Instructions: Comfort care protocol being initiated. Morphine IV push currently in use, along with Ativan.
--- NOTE | 2016-09-24 18:21 | P.HPIM ---
History of Present Illness H&P Date: 09/23/16 (Comfort care, opened to hospice) Chief Complaint: Acute on chronic hypoxic respiratory failure, recent hemoptysis This is a 81-year-old gentleman admitted with increased shortness of breath, chest pain, hypoxic respiratory failure, acute pulmonary embolism in a patient with history of right-sided lung cancer with lobectomy, CyberKnife radiation recently. Patient failed outpatient treatment for pneumonia and hypersensitivity pneumonitis for months. Previously declined biopsies. Bilateral lesions on chest x-ray, spiral CT suggestive of interstitial lesions, possibly pneumonitis, fluid overload or metastasis. Maintained on heparin drip. Evaluated and treated by pulmonary, cardiology and oncology. Respiratory status worsened, requiring nonrebreather(pO2 67% on 100% nonrebreather), developed severe chest pain with hemoptysis. Heparin drip discontinued related to worsening hemoptysis and worsening chest x-ray. CODE STATUS changed to DO NOT RESUSCITATE, Family met with hospice. Patient made comfort care with hospice per family's request. Patient being discharged and opened to hospice. Past Medical History Past Medical History: Cancer, CVA/TIA, GERD/Reflux, Hyperlipidemia, Hypertension , Prostate Disorder, Pulmonary Embolus (PE), Thyroid Disorder Additional Past Medical History / Comment(s): lung CANCER History of Any Multi-Drug Resistant Organisms: None Reported Past Surgical History: Cholecystectomy Additional Past Surgical History / Comment(s): lung removal, carotid endarectomy Past Anesthesia/Blood Transfusion Reactions: No Reported Reaction Past Psychological History: No Psychological Hx Reported Smoking Status: Former smoker Past Alcohol Use History: None Reported Past Drug Use History: None Reported - Past Family History Father Family Medical History: Unable to Obtain Mother Family Medical History: Unable to Obtain Medications and Allergies Allergies Allergy/AdvReac Type Severity Reaction Status Date / Time hydromorphone [From Dilaudid] AdvReac Hallucinati Verified 09/21/16 19:24 ons Physical Exam Vitals: Vital Signs Resp Pulse Ox 09/24/16 07:00 12 09/24/16 02:33 14 99 Intake and Output 09/24/16 09/24/16 09/24/16 06:59 14:59 22:59 Intake Total 100 69.904 Output Total 100 Balance 100 -30.096 Intake: IV 36 Morphine Sulfate 100 mg 36 In Sodium Chloride 0.9% 100 ml @ 2 MG/HR 2.08 mls /hr IV .Q24H MEGHAN Rx#: [id number] Intake, IV Titration 33.904 Amount Morphine Sulfate 100 mg 33.904 In Sodium Chloride 0.9% 100 ml @ 2 MG/HR 2.08 mls /hr IV .Q24H MEGHAN Rx#: [id number] Oral 100 0 Output: Urine 100 Other: Voiding Method Urinal Urinal # Voids 1 1 PHYSICAL EXAM: GENERAL: Obtunded, on nonrebreather RESPIRATORY EFFORT: Normal LUNGS: Coarse rhonchi throughout CARDIOVASCULAR[regular S1 and S2, no edema GI: [Abdomen soft, positive bowel sounds.] Thrombosis Risk Factor Assmnt - Choose All That Apply Any of the Below Risk Factors Present?: Yes Each Factor Represents 1 point: Obesity (BMI >25) Other Risk Factors: Yes Each Risk Factor Represents 3 Points: Age 75 years or older, History of DVT/PE Other congenital or acquired thrombophilia - If yes, enter type in comment: No Thrombosis Risk Factor Assessment Total Risk Factor Score: 7 Thrombosis Risk Factor Assessment Level: High Risk Assessment and Plan Plan: 1. Acute on chronic hypoxic respiratory failure related to acute PE, worsening bilateral pulmonary nodules, groundglass opacity's, suggestive of interstitial lesions, possibly pneumonitis or fluid overload, suspect metastasis. 2. Worsened hemoptysis on heparin drip, subsequently discontinued 3. Bilateral lower extremity DVTs, chronic 4. Acute chest pain 5. History of lung cancer with lobectomy and recent CyberKnife radiation 6. History of nicotine abuse 7. Anemia, normocytic of chronic disease 8. History of CVA, TIA 9. Hypertension 10. Hyperlipidemia 11. Moderate aortic stenosis, normal LV function, EF 55-60%, per echo 12. No code, no CPR, no intubation 13. Comfort care. Plan: Continue on comfort care with hospice. Titrate morphine/ pain management to comfort.
[2016-09-24] MEDS: MORPHINE SULFATE 100 MG in SODIUM CHLORIDE 0.9% 100 ML IV SCH (22:34)
[2016-09-24 23:15] VITALS: RESP 20
[2016-09-25] MEDS: LORazepam 2 MG/ML SYRINGE IV PRN ×4 (05:40→16:26)
--- NOTE | 2016-09-25 11:00 | DS ---
DATE OF ADMISSION: 09/23/2016 DATE OF DISCHARGE: SUMMARY: The patient is a 81-year-old admitted secondary to acute hypoxic respiratory failure. Found to have pulmonary embolism. Patient does have metastatic lung cancer with worsening metastasis. Patient was subsequently made comfort care. The patient today. Patient was on IV morphine until yesterday. Please refer to my nurse practitioner's dictation for further details. Preliminary cause of is pulmonary embolism with contribution from diffuse metastatic lung cancer.
[2016-09-25] MEDS: GLYCOPYRROLATE 0.2 MG/ML 2 ML VIAL IVP SCH ×2 (11:25→15:13)
--- NOTE | 2016-09-25 12:02 | PN ---
DATE OF SERVICE: 09/25/2016 HISTORY OF PRESENT ILLNESS: Patient is a 81-year-old male who came in with problems with acute on chronic hypoxic respiratory failure with problems with hemoptysis and right lung cancer where he is a hospice at this time. Patient is doing quite poorly. Lung sounds are coarse. He is having agonal breathing with long periods of apnea. They continue to suction him for blood. No family is present at this moment. He is not responding. He is on a nonrebreather. His status is grave. He has had no labs done. No resent vital signs. GENERAL: He is obtunded, having long periods of apnea. Mucous membranes are dry. Neck is supple. Lung sounds coarse throughout. CARDIOVASCULAR: S1 and S2 is heard, irregular at times. Abdomen is soft. EXTREMITIES: No significant edema. NEUROLOGIC: He is not responding. IMPRESSION: 1. Acute on chronic hypoxic respiratory failure. 2. Acute right lower lobe pulmonary embolism. 3. Worsening ground-glass opacities and pulmonary nodularity concerning for metastatic disease. 4. Hemoptysis. 5. Bilateral lower extremity deep venous thromboses. 6. Chest pain. 7. History of lung cancer. 8. Anemia. PLAN: Continue with pain control and hospice care. Will continue to monitor.
--- NOTE | 2016-09-25 14:00 | P.PN ---
Subjective Date of service 09/25/2016 Progress note being dictated for Dr. Sharp Interval history: This is a 81-year-old gentleman admitted with acute hypoxic respiratory failure, PE, metastatic lung CA with worsening metastasis, on comfort care with hospice. Maintained on morphine drip, frequent suctioning of blood, agonal breathing. Maintained on nonrebreather mask. Nonresponsive. Currently no family at bedside yet this morning. Objective - Vital Signs Vital signs: Vital Signs Temp Pulse Resp 20 09/25/16 00:05 BP Pulse Ox 99 09/24/16 02:33 Intake & Output 09/24/16 09/25/16 09/25/16 18:59 06:59 18:59 Intake Total 69.904 88.365 10.296 Output Total 100 600 Balance -30.096 -511.635 10.296 Intake: IV 36 Morphine Sulfate 100 mg 36 In Sodium Chloride 0.9% 100 ml @ 2 MG/HR 2.08 mls /hr IV .Q24H MEGH[facility] Rx#: [id number] Intake, IV Titration 33.904 88.365 10.296 Amount Morphine Sulfate 100 mg 33.904 88.365 10.296 In Sodium Chloride 0.9% 100 ml @ 2 MG/HR 2.08 mls /hr IV .Q24H MEGHAN Rx#: [id number] Oral 0 Output: Urine 100 600 Other: Voiding Method Indwelling Catheter Indwelling Catheter Indwelling Catheter # Voids 1 - Exam PHYSICAL EXAM: GENERAL: Obtunded RESPIRATORY EFFORT: Periods of apnea, agonal breathing LUNGS: Coarse rhonchi throughout CARDIOVASCULAR: Irregular Assessment and Plan Plan: 1. Acute on chronic hypoxic respiratory failure related to acute PE, worsening bilateral pulmonary nodules, groundglass opacity's, suggestive of interstitial lesions, possibly pneumonitis or fluid overload, suspect metastasis. 2. Worsened hemoptysis on heparin drip, subsequently discontinued 3. Bilateral lower extremity DVTs, chronic 4. Acute chest pain 5. History of lung cancer with lobectomy and recent CyberKnife radiation 6. History of nicotine abuse 7. Anemia, normocytic of chronic disease 8. History of CVA, TIA 9. Hypertension 10. Hyperlipidemia 11. Moderate aortic stenosis, normal LV function, EF 55-60%, per echo 12. No code, no CPR, no intubation 13. Comfort care. Plan: Continue on comfort care with hospice. Titrate morphine to comfort. The impression and plan of care has been dictated as directed. : I performed a H&P examination of this patient and discussed the same with the dictator. I agree with the dictator's note. Any additional findings/opinions/ etc. will be noted.
--- NOTE | 2016-09-25 14:05 | P.PN ---
Subjective Date of service Progress note being dictated for Dr. Sharp Interval history: This is a 81-year-old gentleman admitted with acute hypoxic respiratory failure, PE, metastatic lung CA with worsening metastasis, on comfort care with hospice. Maintained on nonrebreather mask. Maintained on morphine drip .Appears comfortable. Family at bedside. Objective - Vital Signs Vital signs: Vital Signs Temp Pulse Resp 12 09/24/16 07:00 BP Pulse Ox 99 09/24/16 02:33 Intake & Output 09/23/16 09/24/16 09/24/16 18:59 06:59 18:59 Intake Total 300 69.904 Output Total 100 Balance 300 -30.096 Weight 96.1 kg Intake: IV 36 Morphine Sulfate 100 mg 36 In Sodium Chloride 0.9% 100 ml @ 2 MG/HR 2.08 mls /hr IV .Q24H ME[facility]AN Rx#: [id number] Intake, IV Titration 33.904 Amount Morphine Sulfate 100 mg 33.904 In Sodium Chloride 0.9% 100 ml @ 2 MG/HR 2.08 mls /hr IV .Q24H MEGHAN Rx#: [id number] Oral 300 0 Output: Urine 100 Other: Voiding Method Urinal Urinal # Voids 1 1 - Exam PHYSICAL EXAM: GENERAL: Obtunded RESPIRATORY EFFORT: Unlabored, wearing nonrebreather mask LUNGS: Coarse rhonchi throughout, CARDIOVASCULAR: Regular S1 and S2, no edema Assessment and Plan Plan: 1. Acute on chronic hypoxic respiratory failure related to acute PE, worsening bilateral pulmonary nodules, groundglass opacity's, suggestive of interstitial lesions, possibly pneumonitis or fluid overload, suspect metastasis. 2. Worsened hemoptysis on heparin drip, subsequently discontinued 3. Bilateral lower extremity DVTs, chronic 4. Acute chest pain 5. History of lung cancer with lobectomy and recent CyberKnife radiation 6. History of nicotine abuse 7. Anemia, normocytic of chronic disease 8. History of CVA, TIA 9. Hypertension 10. Hyperlipidemia 11. Moderate aortic stenosis, normal LV function, EF 55-60%, per echo 12. No code, no CPR, no intubation 13. Comfort care. Plan: Continue on comfort care with hospice. Titrate morphine to comfort. Family at bedside. Questions and concerns addressed, support given. The impression and plan of care has been dictated as directed. : I performed a H&P examination of this patient and discussed the same with the dictator. I agree with the dictator's note. Any additional findings/opinions/ etc. will be noted.
[2016-09-25] MEDS: MORPHINE SULFATE 100 MG in SODIUM CHLORIDE 0.9% 100 ML IV SCH (15:12)
== END 2016-09-25 17:20 | disposition expired | DRG 175 ==
LOC: 4MS4W 14:13
PROVIDERS: ADMIT Hospitalist; ATTEND Hospitalist
DX: I26.99 Other pulmonary embolism without acute cor pulmonale (principal); J96.21 Acute and chronic respiratory failure with hypoxia; C78.00 Secondary malignant neoplasm of unspecified lung; C34.91 Malignant neoplasm of unspecified part of right bronchus or lung; I82.503 Chronic embolism and thrombosis of unspecified deep veins of lower extremity, bilateral; D63.8 Anemia in other chronic diseases classified elsewhere; I10 Essential (primary) hypertension; E78.5 Hyperlipidemia, unspecified; I35.0 Nonrheumatic aortic (valve) stenosis; K21.9 Gastro-esophageal reflux disease without esophagitis; E07.9 Disorder of thyroid, unspecified; N42.9 Disorder of prostate, unspecified; R52 Pain, unspecified; Z66 Do not resuscitate; Z87.891 Personal history of nicotine dependence
CPT/HCPCS: 94760